=== PATIENT | female | born 1950 | race Two or more races ===

== ENCOUNTER → 2017-08-08 | Outpatient (CLI) | payer MEDICARE, OTHER ==
[~2017-08-08] VITALS: Ht 175.3 cm; Wt 81.2 kg
[~2017-08-08] MED LIST: FUROSEMIDE 20MG/2ML VIAL IVP ONE
== END | disposition home or self-care (01) ==
LOC: NM 07:42
PROVIDERS: ATTEND Specialist
DX: N13.30 Unspecified hydronephrosis (principal)
CPT/HCPCS: 78707; A9562; J1940

== ENCOUNTER 2024-05-30 12:30 | Emergency (ER) | payer MEDICARE, OTHER ==
[~2024-05-30] VITALS: Ht 167.6 cm; Wt 79.0 kg
[2024-05-30 12:32] VITALS: O2SAT 96
[2024-05-30] MEDS ORDERED: DOXY100C5 MT (16:04)
[2024-05-30 16:33] VITALS: BP 126/58; PULSE 94; RESP 18; TEMP 98.2
== END 2024-05-30 17:21 | disposition home or self-care (01) ==
LOC: ER 12:30
DX: S61.511A Laceration without foreign body of right wrist, initial encounter (principal); S09.8XXA Other specified injuries of head, initial encounter; I10 Essential (primary) hypertension; Z98.890 Other specified postprocedural states; Z88.2 Allergy status to sulfonamides; Z88.0 Allergy status to penicillin; X58.XXXA Exposure to other specified factors, initial encounter; Y93.89 Activity, other specified; Y92.89 Other specified places as the place of occurrence of the external cause; Y99.8 Other external cause status
CPT/HCPCS: 99284